=== PATIENT | male | born 1990 | race Caucasian/White ===

== ENCOUNTER 2018-08-28 10:53 | Emergency (ER) | payer OTHER, SELFPAY ==
--- NOTE | 2018-08-28 10:55 | W.ED.GENAD ---
Discharge Plan Disposition Patient Disposition: HOME Condition: Stable Discharge Details Chief Complaint: PsychEval Clinical Impression: Depression Primary Care Provider: None,None ED Provider: Sergio Monroy Home Meds and New Rx's Prescriptions: No Action cetirizine [Zyrtec] 10 MG tablet 10 mg PO DAILY RF: 0 acetaminophen [Tylenol] 325 MG tablet PRN PRNRF: 0 Discharge Instructions Instructions: Depression (ED) Medical Decision Making 28 yo who denies chronic medical problems or drug use comes in with cc of depression over a year. States it started after his and 2 kids left him, has had family member dx'd with cancer recently and girlfriend of 7 months per him more or less left him a few weeks ago. He has had increased depression without si/hi or thoughts, but has called his work hotline for mental health and since he was having trouble getting help referred here. He is in no distress, is flat and depressed on exam otherwise no focal neuro deficits, and negative ros otherwise so unlikley underlying medical or endocrine disorder causing his symptoms, do not feel lab work indicated. Will have mental health evaluate pt met with mental health and cleared for d/c with outpatient services, return precautions given Differential Diagnosis depression, si HPI General Mode of arrival: ambulatory. Date/Time Provider Initiated Documentation: 08/28/18 10:55. Limitations to Documentation: no limitations. Information obtained by: patient. History of Present Illness 28 year old M presents to the emergency department with the chief complaint of depression, described as moderate, No relieving factors improve symptom(s), No exacerbating factors reported . Patient did receive the following treatments prior to arrival, none Related Data Home Medications Medication Instructions Recorded Confirmed cetirizine [Zyrtec] 10 mg PO DAILY 12/10/13 08/28/18 acetaminophen [Tylenol] PRN PRN 11/04/17 Allergies Allergy/AdvReac Type Severity Reaction Status Date / Time No Known Allergies Allergy Unverified 08/28/18 11:02 Review of Systems Review of Systems All systems reviewed & are unremarkable except as noted in HPI and below Constitutional Denies chills, Denies fever(s) and Denies weakness Eyes Denies loss of vision ENT Denies change in voice Cardiovascular Denies chest pain and Denies dyspnea Respiratory Denies cough and Denies dyspnea Gastrointestinal Denies abdominal pain, Denies nausea and Denies vomiting Integumentary/Breasts Denies rash Neurologic Denies loss of vision and Denies weakness Endocrine Denies cold intolerance and Denies heat intolerance PFSH Social History Smoking/Tobacco Use Status: Current every day Tobacco Type: cigarettes Drug use: Never Substance use type: does not use Do you feel safe in your relationship?: Yes Exam Const General: no acute distress Orientation: alert HENMT Head: normal to inspection Ears: external ears normal General nose exam: external nose normal Mouth: moist mucous membranes Eyes General: appearance normal, both eyes and all related structures Neck Neck: normal visual inspection Resp Effort & Inspection: normal respiratory effort and able to speak in complete sentences Cardio Rate: regular rate Skin General skin exam: no rashes or lesions noted Neuro General: alert and oriented x3 Extrem General: normal to inspection Psych Thought Process: normal Thought Content: suicidality
[2018-08-28 10:58] VITALS: BP 138/90; PULSE 90; RESP 15; TEMP 36.5; O2SAT 99
--- NOTE | 2018-08-28 11:14 | ED.GENADUL_ITS ---
Discharge Plan Disposition Patient Disposition: HOME Condition: Stable Discharge Details Chief Complaint: PsychEval Clinical Impression: Depression Primary Care Provider: None,None ED Provider: Sergio Monroy Home Meds and New Rx's Prescriptions: No Action cetirizine [Zyrtec] 10 MG tablet 10 mg PO DAILY RF: 0 acetaminophen [Tylenol] 325 MG tablet PRN PRNRF: 0 Discharge Instructions Instructions: Depression (ED) Medical Decision Making 28 yo who denies chronic medical problems or drug use comes in with cc of depression over a year. States it started after his and 2 kids left him, has had family member dx'd with cancer recently and girlfriend of 7 months per him more or less left him a few weeks ago. He has had increased depression without si/hi or thoughts, but has called his work hotline for mental health and since he was having trouble getting help referred here. He is in no distress, is flat and depressed on exam otherwise no focal neuro deficits, and negative ros otherwise so unlikley underlying medical or endocrine disorder causing his symptoms, do not feel lab work indicated. Will have mental health evaluate pt met with mental health and cleared for d/c with outpatient services, return precautions given Differential Diagnosis depression, si HPI General Mode of arrival: ambulatory . Date/Time Provider Initiated Documentation: 08/28/18 10:55 . Limitations to Documentation: no limitations . Information obtained by: patient . History of Present Illness 28 year old M presents to the emergency department with the chief complaint of depression, described as moderate, No relieving factors improve symptom(s), No exacerbating factors reported . Patient did receive the following treatments prior to arrival, none Related Data Home Medications Medication Instructions Recorded Confirmed cetirizine [Zyrtec] 10 mg PO DAILY 12/10/13 08/28/18 acetaminophen [Tylenol] PRN PRN 11/04/17 Allergies Allergy/AdvReac Type Severity Reaction Status Date / Time No Known Allergies Allergy Unverified 08/28/18 11:02 Review of Systems Review of Systems All systems reviewed & are unremarkable except as noted in HPI and below Constitutional Denies chills, Denies fever(s) and Denies weakness Eyes Denies loss of vision ENT Denies change in voice Cardiovascular Denies chest pain and Denies dyspnea Respiratory Denies cough and Denies dyspnea Gastrointestinal Denies abdominal pain, Denies nausea and Denies vomiting Integumentary/Breasts Denies rash Neurologic Denies loss of vision and Denies weakness Endocrine Denies cold intolerance and Denies heat intolerance PFSH Social History Smoking/Tobacco Use Status: Current every day Tobacco Type: cigarettes Drug use: Never Substance use type: does not use Do you feel safe in your relationship?: Yes Exam Const General: no acute distress Orientation: alert HENMT Head: normal to inspection Ears: external ears normal General nose exam: external nose normal Mouth: moist mucous membranes Eyes General: appearance normal, both eyes and all related structures Neck Neck: normal visual inspection Resp Effort & Inspection: normal respiratory effort and able to speak in complete sentences Cardio Rate: regular rate Skin General skin exam: no rashes or lesions noted Neuro General: alert and oriented x3 Extrem General: normal to inspection Psych Thought Process: normal Thought Content: suicidality
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
--- NOTE | 2018-08-29 09:46 | NUR.NOTE ---
Nursing Note: Faxed to [facility] referral for follow up. Linnea Parmar on for telephone call. Patient states already has paperwork to establish with this practice. Ann Marie Bridges.
== END 2018-08-28 12:41 | disposition home or self-care (01) ==
PROVIDERS: Emergency Provider Emergency Medicine
DX: F32.9 Major depressive disorder, single episode, unspecified (principal)
CPT/HCPCS: 99284

== ENCOUNTER 2019-01-29 15:17 | Outpatient (REF) | payer OTHER, SELFPAY ==
[2019-01-31 10:26] LABS: Hepatitis B Surface Ag Negative (NEGAT)
[2019-01-31 10:28] LABS: HIV-1/2 Ag & Ab Screen Negative (NEGAT)
[2019-01-31 11:59] LABS: Syphilis Serology (RPR) Negative (Negative)
[2019-01-31 12:24] LABS: Chlamydia Result Negative; GC Result Negative; Specimen Description URINE
== END 2019-01-29 15:37 ==
LOC: NCHCN 15:17
PROVIDERS: PCP Family Medicine; Visit Provider Family Medicine
DX: Z20.2 Contact with and (suspected) exposure to infections with a predominantly sexual mode of transmission (principal); Z11.3 Encounter for screening for infections with a predominantly sexual mode of transmission; Z11.4 Encounter for screening for human immunodeficiency virus [HIV]; Z11.59 Encounter for screening for other viral diseases; Z00.00 Encounter for general adult medical examination without abnormal findings
CPT/HCPCS: 87340; 87389; 87491; 87591; 86592

== ENCOUNTER 2022-04-06 16:04 | Emergency (ER) | payer OTHER, SELFPAY ==
[2022-04-06 16:17] VITALS: BP 134/81; PULSE 89; RESP 16; TEMP 37.2; O2SAT 99
--- NOTE | 2022-04-06 17:15 | DI.RAD_ITS ---
Exam(s) XR PORTABLE CHEST AP EXAM: XR PORTABLE CHEST AP CLINICAL HISTORY: cough, PUI TECHNIQUE: 2D digital imaging was performed. COMPARISON: No exams were available for comparison FINDINGS: LUNGS: Clear. No pleural abnormality seen. HEART: Normal size. AORTA: Normal diameter. BONES: Unremarkable for age. Soft tissues: Unremarkable. IMPRESSION: No acute findings. DATA REPOSITORY: RADIATION DOSE DELIVERED:
--- NOTE | 2022-04-06 17:18 | ED.GENADUL_ITS ---
Discharge Plan Disposition Patient Disposition: Home Condition: Stable Discharge Details Clinical Impression: Influenza A Primary Care Provider: Rey Santoyo ED Provider: Fahad Izaguirre Home Meds and New Rx's Prescriptions: Continued cetirizine [Zyrtec] 10 MG tablet 10 mg PO DAILY acetaminophen [Tylenol] 325 MG tablet PRN PRN Discharge Instructions Instructions: Influenza (ED) Additional Instructions: Home to rest today. Small, frequent sips of fluids to maintain hydration. May use Tylenol and/or Motrin/ibuprofen as needed for aches, pains, fever. Return for any acute concern. Stand Alone Forms: Work Release Medical Decision Making 31-year-old male presents with day 2 of cough, congestion, body ache, myalgias, headache. He is not immunized against COVID. He arrives to the ER afebrile and well-appearing oxygenating 99% on room air. His exam is reassuring. Viral swab obtained, patient referred for screening chest x-ray and given acetaminophen and oral fluids. Chest x-ray obtained without evidence of acute abnormality. Viral swabs are positive for influenza. Patient is stable and appropriate for discharge to home. Sign Out No HPI General Mode of arrival: ambulatory . Date/Time Provider Initiated Documentation: 04/06/22 16:33 . Limitations to Documentation: no limitations . Information obtained by: patient . History of Present Illness 31 year old M presents to the emergency department with the chief complaint of Fever, cough, headache and body ache for 2 days, described as moderate, Quality is described as dull and constant, and is localized to the head and chest. Patient started experiencing this day(s) and it has been constant. No relieving factors improve symptom(s), No exacerbating factors reported . Patient notes cough, fever/chills and headaches. Patient did receive the foll owing treatments prior to arrival, none Related Data Home Medications Medication Instructions Recorded Confirmed cetirizine 10 mg tablet (Zyrtec) 10 mg PO DAILY 12/10/13 04/06/22 acetaminophen 325 mg tablet PRN PRN 11/04/17 03/21/22 (Tylenol) Allergies Allergy/AdvReac Type Severity Reaction Status Date / Time No Known Allergies Allergy Verified 04/06/22 16:19 General Stated Complaint: RespSymp ISADORA: 4 Review of Systems Narrative: 6 systems reviewed and otherwise negative. Not immunized against COVID. PFSH All Active Problems (Updated 04/06/22 @ 18:06 by Fahad Izaguirre MD) Influenza A (Acute) Cervical strain (Acute) Thoracic myofascial strain (Acute) Lumbar strain (Acute) Social History Smoking/Tobacco Use Status: Current every day Tobacco Type: e-cigarettes Smoking risk assessment performed?: Yes Drug use: Never Substance use type: does not use Seatbelt use: sometimes Do you feel safe at home: Yes Do you feel safe in your relationship?: Yes Exam Narrative Exam Narrative: GEN: awake, alert, oriented 3. Pleasant, well groomed, interactive. HEAD: Normocephalic, atraumatic ENT: Mucous membranes moist, oropharynx unremarkable, External ear exam unremarkable EYES: PERRL, EOMI NECK: Full ROM, no JUSTEN, no menigismus CHEST/RESP: Nontender, clear to auscultation bilateral, no wheeze/rhonchi/rales CARDIOVASCULAR: RRR, no murmur, rub partha. 2+ Rad pulse bilateral ABDOMEN: Soft, nontender, no mass. +Bowel sounds EXT: Full ROM, no edema, no rash Neuro: Grossly normal neurologic exam, conversant, interactive. Psych: Speech fluent, thoughts congruent, affect normal Course Vital Signs Vital signs: Vital Signs Temperature 37.2 C 04/06/22 16:17 Pulse 89 04/06/22 16:17 Respiratory Rate 16 04/06/22 16:17 Blood Pressure 134/81 04/06/22 16:17 Pulse Oximetry 99 04/06/22 16:17 Temperature 37.2 C 04/06/22 16:17 Temperature Source Temporal Artery Scan 04/06/22 16:17 Pulse 89 04/06/22 16:17 Respiratory Rate 16 04/06/22 16:17 Respiratory Effort Non-Labored 04/06/22 17:10 Respiratory Depth Normal 04/06/22 17:10 Blood Pressure 134/81 04/06/22 16:17 Blood Pressure Position Sitting 04/06/22 16:17 Pulse Oximetry 99 04/06/22 16:17 Oxygen Delivery Method Room Air 04/06/22 16:17 Oxygen Flow Rate 0 04/06/22 16:17 PAWSS Have you Been Recently Intoxicated or Drunk Within the Last 30 days?: No Have you Ever Experienced Previous Episodes of Alcohol Withdrawal?: No Have you ever Experienced Withdrawal Seizures?: No Have you ever Experienced Delirium Tremens(DT)s?: No Have you ever undergone Alcohol Rehabilitation Treatment (i.e, inpt ot outpatient treatment programs)?: No Have you ever Experienced Blackouts?: No Have you ever Combined Alcohol with other Downers within the last 90 days?: No Have you ever Combined Alcohol with any other Substance of Abuse during the last 90 days?: No Positive Blood Alcohol level on Presentation? [PCS.BAL]: No Evidence of Increased Autonomic Activity (i.e. HR>120, tremor, sweating, agitation, nausea)?: No Result: 0
[2022-04-06] MEDS: Acetaminophen 500 MG TAB 1000 MG PO (17:21)
[2022-04-06 17:54] LABS: COVID-19 PCR Negative (Negative); Influenza A PCR Positive (Negative); Influenza B PCR Negative (Negative); RSV PCR Negative (Negative)
[2022-04-06 17:56] LABS: Source Nasopharynx
--- NOTE | 2022-04-06 18:07 | DI.VRAD_ITS ---
PROCEDURE INFORMATION: Exam: XR Chest Exam date and time: 04/06/2022 17:22 Age: 31 years old Clinical indication: Cough TECHNIQUE: Imaging protocol: Radiologic exam of the chest. Views: 1 view. COMPARISON: CT CHEST ABD PELVIS WITH CONTRAST 11/05/2017 00:21 FINDINGS: Lungs: No consolidation. Pleural spaces: No pleural effusion. No pneumothorax. Heart/Mediastinum: No cardiomegaly. Bones/joints: No acute fracture. IMPRESSION: Negative portable chest. Dictated and Authenticated by: Aydee Felix MD. Ordering:ROBIN Vásquez MD
[2022-04-06 18:13] VITALS: BP 131/80; PULSE 98; RESP 15; TEMP 37.1; O2SAT 96
== END 2022-04-06 18:19 | disposition home or self-care (01) ==
PROVIDERS: Emergency Provider Emergency Medicine; PCP Family Medicine
DX: J10.1 Influenza due to other identified influenza virus with other respiratory manifestations (principal); F17.290 Nicotine dependence, other tobacco product, uncomplicated; Z20.822 Contact with and (suspected) exposure to COVID-19; Z28.310 Unvaccinated for COVID-19
CPT/HCPCS: 87637; 99283; 71045; 99282

== ENCOUNTER 2022-05-15 19:28 | Outpatient (REF) | payer SELFPAY ==
[2022-05-15 19:45] LABS: HCT 43.7 % (40.0-50.0); HGB 15.1 g/dL (13.5-17.5); MCH 30.4 pg (27.0-33.0); MCHC 34.6 % (32.0-36.0); MCV 88 fL (80-95); MPV 11.2 fL (8.0-11.0); Platelet Count 250 10^3/uL (130-400); RBC 4.96 10^6/uL (4.36-5.78); RDW-SD 41.8 fL; WBC 8.44 10^3/uL (4.4-10.8)
[2022-05-15 19:55] LABS: ALT 66 U/L (16-63); AST 44 U/L (15-37); Albumin 4.1 g/dL (3.4-5.0); Alkaline Phosphatase 55 U/L (46-116); Anion Gap 9.3 mmol/L (3-11); BUN 13 mg/dL (7-18); Bilirubin, Total 0.3 mg/dL (0.2-1.0); CO2 25.7 mmol/L (21.0-32.0); CREATININE 0.8 mg/dL (0.70-1.30); Calcium 8.9 mg/dL (8.5-10.1); Calculated LDL 118 mg/dL (<100); Chloride 101 mmol/L (98-107); Cholesterol 209 mg/dL (<200); Glucose 85 mg/dL (74-106); HDL Cholesterol 63 mg/dL (40-60); Potassium 3.7 mmol/L (3.5-5.1); Sodium 136 mmol/L (136-145); Total Protein 7.6 g/dL (6.4-8.2); Triglyceride 144 mg/dL (<150)
== END 2022-05-15 19:29 | disposition home or self-care (01) ==
LOC: NCHCN 19:28
PROVIDERS: PCP Family Medicine; Visit Provider Nurse Practitioner Family
DX: Z00.00 Encounter for general adult medical examination without abnormal findings (principal); Z13.220 Encounter for screening for lipoid disorders
CPT/HCPCS: 80053; 80061; 85027

== ENCOUNTER 2022-07-02 16:38 | Emergency (ER) | payer SELFPAY ==
[2022-07-02 16:55] VITALS: BP 130/91; PULSE 123; RESP 24; TEMP 37; O2SAT 94
--- NOTE | 2022-07-02 17:04 | ED.GENADUL_ITS ---
Discharge Plan Disposition Patient Disposition: Home Condition: Stable Discharge Details Clinical Impression: Acute bilateral otitis media Primary Care Provider: Rey Santoyo ED Provider: Fahad Izaguirre Home Meds and New Rx's Prescriptions: New amoxicillin-pot clavulanate 875-125 mg tablet 1 tab PO BID 10 Days Qty: 20 0RF Continued cetirizine [Zyrtec] 10 MG tablet 10 mg PO DAILY acetaminophen [Tylenol] 325 MG tablet 500 mg PO PRN PRN omeprazole 20 mg capsule,delayed release(DR/EC) 20 mg PO DAILY Patient Comments: TAKE 1 CAPSULE BY MOUTH EVERY DAY Discharge Instructions Instructions: Ear Infection (ED) Additional Instructions: Home to rest today. Small, frequent sips of fluids that she maintain good hydration. Popsicles may soothe your throat as well. Tylenol 650 to 975 mg every 4-6 hours and/or ibuprofen 600 to 800 mg every 6-8 hours as needed for aches, pains or fever. You were given a dose of dexamethasone for its anti-inflammatory properties. Please finish 10 days of Augmentin. You will benefit from taking an [id number] probiotic once in the middle of the day while on the antibiotic for gut protection. Return to the emergency part for any acute concerns. Medical Decision Making This is a 32-year-old male who presents from home with day 3 of fever, sore throat and bilateral ear pain. His exam is consistent with acute otitis media. He does appear to have pharyngitis as well. Discussed with him that treatment with Augmentin would cover for a strep infection. He is also given a dose of dexamethasone for its anti-inflammatory properties. He will continue to push fluids at home and use [id number] analgesics as needed. He understands indications to seek reevaluation HPI General Mode of arrival: ambulatory . Date/Time Provider Initiated Documentation: 07/02/22 16:39 . Limitations to Documentation: no limitations . Information obtained by: patient . History of Present Illness 32 year old M presents to the emergency department with the chief complaint of Bilateral ear pain and throat pain for 3 days, described as moderate, Quality is described as dull and constant, and is localized to the head and mouth. Patient reports no radiation. Patient started experiencing this day(s) and it has been constant. No relieving factors improve symptom(s), No exacerbating factors reported . Patient notes fever/chills; denies cough, nausea/vomiting and rash. Patient did receive the following treatments prior to arrival, none Related Data Home Medications Medication Instructions Recorded Confirmed cetirizine 10 mg tablet (Zyrtec) 10 mg PO DAILY 12/10/13 07/02/22 acetaminophen 325 mg tablet 500 mg PO PRN PRN 11/04/17 07/02/22 (Tylenol) amoxicillin 875 mg-potassium 1 tab PO BID 10 days #20 tabs 07/02/22 clavulanate 125 mg tablet omeprazole 20 mg capsule,delayed 20 mg PO DAILY 07/02/22 07/02/22 release Previous Rx's Medication Instructions Recorded amoxicillin 875 mg-potassium 1 tab PO BID 10 days #20 tabs 07/02/22 clavulanate 125 mg tablet Allergies Allergy/AdvReac Type Severity Reaction Status Date / Time No Known Allergies Allergy Verified 07/02/22 16:59 General Stated Complaint: Sorethroat ISADORA: 4 Review of Systems Narrative: No cough. No nausea or vomiting. No known sick contacts. 6 systems were reviewed and otherwise negative PFSH All Active Problems (Updated 07/02/22 @ 17:07 by Fahad Izaguirre MD) Acute bilateral otitis media (Acute) Cervical strain (Acute) Thoracic myofascial strain (Acute) Lumbar strain (Acute) Social History Smoking/Tobacco Use Status: Current every day Tobacco Type: e-cigarettes Smoking risk assessment performed?: Yes Drug use: Never Substance use type: does not use Seatbelt use: sometimes Do you feel safe at home: Yes Do you feel safe in your relationship?: Yes Exam Narrative Exam Narrative: GEN: awake, alert, oriented 3. Pleasant, well groomed, interactive. HEAD: Normocephalic, atraumatic ENT: Mucous membranes moist, oropharynx erythematous without significant edema or swelling and no exudate, the tympanic membranes are distended and erythematous bilaterally, External ear exam unremarkable EYES: PERRL, EOMI NECK: Full ROM, no JUSTEN, no menigismus CHEST/RESP: Nontender, clear to auscultation bilateral, no wheeze/rhonchi/rales CARDIOVASCULAR: Regular, borderline tachycardia at rest, no murmur, rub partha. 2+ Rad pulse bilateral ABDOMEN: Soft, nontender, no mass. +Bowel sounds EXT: Full ROM, no edema, no rash Neuro: Grossly normal neurologic exam, conversant, interactive. Psych: Speech fluent, thoughts congruent, affect normal Course Vital Signs Vital signs: Vital Signs Temperature 37.0 C 07/02/22 16:55 Pulse 123 H 07/02/22 16:55 Respiratory Rate 24 07/02/22 16:55 Blood Pressure 130/91 H 07/02/22 16:55 Pulse Oximetry 94 07/02/22 16:55 Temperature 37.0 C 07/02/22 16:55 Temperature Source Oral 07/02/22 16:55 Pulse 123 H 07/02/22 16:55 Respiratory Rate 24 07/02/22 16:55 Respiratory Effort Normal 07/02/22 16:58 Blood Pressure 130/91 H 07/02/22 16:55 Blood Pressure Position Sitting 07/02/22 16:55 Pulse Oximetry 94 07/02/22 16:55 Oxygen Delivery Method Room Air 07/02/22 16:55 Oxygen Flow Rate 0 07/02/22 16:55 Pain Level 7 07/02/22 16:55
[2022-07-02] MEDS: Amox. 875/Clav. 125, 2 TABS/BTL 1 TAB PO (17:08)
[2022-07-02] MEDS: Dexamethasone 4 MG TAB 8 MG PO (17:08)
[2022-07-02 17:15] VITALS: BP 130/91; PULSE 123; RESP 24; TEMP 37; O2SAT 94
== END 2022-07-02 17:37 | disposition home or self-care (01) ==
PROVIDERS: Emergency Provider Emergency Medicine; PCP Family Medicine
DX: H66.93 Otitis media, unspecified, bilateral (principal); R50.9 Fever, unspecified; J02.9 Acute pharyngitis, unspecified
CPT/HCPCS: 99283; J8540

== ENCOUNTER 2023-03-27 20:03 | Outpatient (REF) | payer OTHER, SELFPAY | END 2023-03-27 20:04 | disposition home or self-care (01) | LOC: LBN 20:03 | PROVIDERS: PCP Family Medicine; Visit Provider Nurse Practitioner Family | DX: R35.0 Frequency of micturition (principal) | CPT/HCPCS: 87086 ==

== ENCOUNTER 2023-05-17 06:05 | Emergency (ER) | payer OTHER, SELFPAY | END 2023-05-17 08:51 | disposition home or self-care (01) | PROVIDERS: Emergency Provider Student in an Organized Health Care Education/Training Program; PCP Family Medicine | DX: L03.114 Cellulitis of left upper limb (principal) | CPT/HCPCS: 10060 ==

== ENCOUNTER 2023-08-21 19:10 | Outpatient (REF) | payer OTHER, SELFPAY ==
[2023-08-21 19:31] LABS: Abs Immature Grans 0.03 10^3/uL (0.0-0.06); Absolute Basophil Count 0.06 10^3/uL (0.0-0.2); Absolute Eosinophil Count 0.26 10^3/uL (0.0-0.7); Absolute Lymphocyte Count 2.61 10^3/uL (1.2-3.4); Absolute Neutrophil Count 3.68 10^3/uL (1.2-6.7); Basophils % 0.8; Eosinophils % 3.6; HCT 44.7 % (40.0-50.0); HGB 15.3 g/dL (13.5-17.5); Immature Grans % 0.4; Lymphocytes % 36.6; MCH 29.6 pg (27.0-33.0); MCHC 34.2 % (32.0-36.0); MCV 87 fL (80-95); MPV 10.9 fL (8.0-11.0); Neutrophils % 51.6; Platelet Count 256 10^3/uL (130-400); RBC 5.17 10^6/uL (4.36-5.78); WBC 7.14 10^3/uL (4.4-10.8)
[2023-08-21 19:47] LABS: Hemoglobin A1C 5.3 % (<5.7)
[2023-08-21 19:59] LABS: ALT 55 U/L (16-63); AST 27 U/L (15-37); Albumin 4.1 g/dL (3.4-5.0); Alkaline Phosphatase 68 U/L (46-116); Anion Gap 12.1 mmol/L (3-11); BUN 12 mg/dL (7-18); Bilirubin, Total 0.3 mg/dL (0.2-1.0); CO2 23.9 mmol/L (21.0-32.0); Calculated LDL 121 mg/dL (<100); Chloride 104 mmol/L (98-107); Cholesterol 212 mg/dL (<200); Estimated GFR 100.66 (mL/min/1.73m2); Glucose 88 mg/dL (74-106); HDL Cholesterol 65 mg/dL (40-60); Sodium 140 mmol/L (136-145); TSH 1.97 uIU/Ml (0.36-3.74); Total Protein 7.4 g/dL (6.4-8.2); Triglyceride 134 mg/dL (<150)
== END 2023-08-21 19:11 | disposition home or self-care (01) ==
LOC: NCHCN 19:10
PROVIDERS: PCP Family Medicine; Visit Provider Nurse Practitioner Family
DX: Z00.00 Encounter for general adult medical examination without abnormal findings (principal)
CPT/HCPCS: 80053; 80061; 83036; 84443; 85025